=== PATIENT | female | born 1950 | race African-American/Black ===

== ENCOUNTER 2021-03-29 17:49 | Emergency (ER) | payer MEDICARE, MEDICAID, OTHER ==
[~2021-03-29] VITALS: Ht 162.6 cm; Wt 100.0 kg
[2021-03-29] MEDS ORDERED: TETANUS, DIPHTHERIA, PERTUSSIS VAC/PF 0.5ML (>7YR OLD) IM ONE (19:15)
[2021-03-29 21:18] VITALS: BP 175/84
== END 2021-03-29 21:25 | disposition home or self-care (01) ==
LOC: ER 17:49
DX: R68.84 Jaw pain (principal); E11.9 Type 2 diabetes mellitus without complications; I10 Essential (primary) hypertension; W01.0XXA Fall on same level from slipping, tripping and stumbling without subsequent striking against object, initial encounter; Y93.89 Activity, other specified; Y92.018 Other place in single-family (private) house as the place of occurrence of the external cause
CPT/HCPCS: 70486; 90471; 90715; 99285

== ENCOUNTER 2022-08-16 17:59 | Emergency (ER) | payer MEDICARE, MEDICAID ==
[~2022-08-16] VITALS: Ht 167.6 cm; Wt 73.0 kg
[2022-08-16 18:08] VITALS: BP 138/71
[2022-08-16 20:53] LABS: BASOPHILS % 1.2 % (0.0-2.0); EOSINOPHILS % 2.9 % (0.0-5.0); HEMATOCRIT. 34.7 % (36.0-48.0); HEMOGLOBIN. 11.6 g/dL (12.0-16.0); LYMPHOCYTES % 28.9 % (20.0-50.0); MEAN CORPUSCULAR HEMOGLOBIN 28.2 pg (28.0-32.0); MEAN CORPUSCULAR VOLUME 84.7 fL (81.0-99.0); MONOCYTES % 7.2 % (2.0-8.0); NEUTROPHILS % 59.8 % (40.0-76.0); PLATELET 252 x1000/uL (130-400); RED CELL DISTRIBUTION WIDTH 15.3 % (11.6-14.6)
[2022-08-16 20:56] LABS: CHLORIDE 99 mEq/L (98-107)
[2022-08-16] MEDS ORDERED: GABA300C MT (22:54)
== END 2022-08-16 23:20 | disposition home or self-care (01) ==
LOC: ER 17:59
DX: E11.40 Type 2 diabetes mellitus with diabetic neuropathy, unspecified (principal); I10 Essential (primary) hypertension
CPT/HCPCS: 36415; 71045; 80053; 83880; 84484; 85025; 93005; 93970; 99285

== ENCOUNTER 2024-06-01 08:10 | Inpatient (IN) | payer OTHER, MEDICAID, MEDICARE ==
[~2024-06-01] VITALS: Ht 167.6 cm; Wt 77.1 kg
[~2024-06-01 08:10] MED LIST: GABA300C MT
[2024-06-01 09:17] LABS: BASOPHILS % 0.9 % (0.0-2.0); EOSINOPHILS % 0.7 % (0.0-5.0); HEMATOCRIT. 40.7 % (36.0-48.0); HEMOGLOBIN. 13.6 g/dL (12.0-16.0); LYMPHOCYTES % 21.8 % (20.0-50.0); MEAN CORPUSCULAR HEMOGLOBIN 28.6 pg (28.0-32.0); MEAN CORPUSCULAR HGB CONC 33.4 g/dL (31.0-37.0); MEAN CORPUSCULAR VOLUME 85.5 fL (81.0-99.0); MEAN PLATELET VOLUME 9.7 fl (7.4-10.4); MONOCYTES % 4.4 % (2.0-8.0); NEUTROPHILS % 72.2 % (40.0-76.0); PLATELET 222 x1000/uL (130-400); RED BLOOD CELL COUNT 4.76 mill/uL (4.2-5.4); RED CELL DISTRIBUTION WIDTH 14.8 % (11.6-14.6); WHITE BLOOD COUNT 7.1 x1000/uL (4.5-11.0)
[2024-06-01 09:33] LABS: CHLORIDE 106 mEq/L (98-107); POTASSIUM 3.9 mEq/L (3.5-5.1); SODIUM 142 mEq/L (136-145)
[2024-06-01 09:34] LABS: CALCIUM 10.5 mg/dL (8.7-10.4); CARBON DIOXIDE 29 mEq/L (21-32)
[2024-06-01 09:39] LABS: CREATININE 0.7 mg/dL (0.6-1.0); GLUCOSE 110 mg/dL (70-105); UREA NITROGEN BLOOD 10 mg/dL (9-23)
[2024-06-01 09:45] LABS: TROPONIN I HIGH SENSITIVITY < 4 ng/L (3.0-34)
[2024-06-01] MEDS ORDERED: INSULIN GLARGINE 100 UNITS/ML SUBCUT SCH (10:00)
[2024-06-01] MEDS: MAGNESIUM 2 G PREMIX 50 ML IV NR (11:36)
[2024-06-01] MEDS ORDERED: DEXTROSE 50% WATER 50ML SYRINGE IV PRN (13:45)
[2024-06-01] MEDS ORDERED: ONDANSETRON HCL 4MG/2ML INJ IV PRN (13:45)
[2024-06-01] MEDS ORDERED: ACETAMINOPHEN 325MG TABLET PO PRN (13:45)
[2024-06-01] MEDS ORDERED: MAGNESIUM/ALUMINUM HYDROXIDE/SIMETHICONE 30ML UDC PO PRN (13:45)
[2024-06-01] MEDS ORDERED: IPRATROPIUM/ALBUTEROL 0.5-3(2.5)MG/3ML NEB HHN PRN (13:45)
[2024-06-01] MEDS ORDERED: DOCUSATE SODIUM 100MG CAPSULE PO PRN (13:45)
[2024-06-01] MEDS ORDERED: MORPHINE SULFATE 2 MG/ML INJ (NOT FOR IM USE) IV PRN (13:45)
[2024-06-01] MEDS ORDERED: GUAIFENESIN 200MG/10ML SUGAR FREE UDC PO PRN (13:45)
[2024-06-01] MEDS ORDERED: NALOXONE HCL 0.4MG/ML VIAL IV PRN (14:30)
[2024-06-01] MEDS: IOHEXOL-350 100 ML BOTTLE ONE (14:58)
[2024-06-01] MEDS: HYDRALAZINE 20MG/ML VIAL IV NR (15:05)
[2024-06-01 15:35] VITALS: BP 155/82; PULSE 72; RESP 20; TEMP 36.5848
[2024-06-01] MEDS ORDERED: ATOR10TA MT (15:46)
[2024-06-01] MEDS ORDERED: ASPI-986 MT (15:46)
[2024-06-01] MEDS ORDERED: METF-416 MT (15:46)
[2024-06-01] MEDS: INSULIN LISPRO 100 UNITS/ML SUBCUT SCH (16:23)
[2024-06-01] MEDS: SODIUM CHLORIDE 0.9% 1,000 ML IV SCH (16:23)
[2024-06-01] MEDS: BLOOD SUGAR DIAGNOSTIC STRIP TEST SCH (16:23)
[2024-06-01] MEDS: ENOXAPARIN 40MG/0.4ML SYR SUBCUT SCH (16:23)
[2024-06-01 18:34] LABS: TROPONIN I HIGH SENSITIVITY < 4 ng/L (3.0-34)
[2024-06-01 20:03] VITALS: BP 119/72; PULSE 75; RESP 18; TEMP 36.50292; O2SAT 99
[2024-06-01] MEDS: GABAPENTIN 100MG CAPSULE PO SCH (21:27)
[2024-06-01 22:18] LABS: CREATINE KINASE MB FRACTION 3.2 ng/mL (0.5-3.6); TROPONIN I HIGH SENSITIVITY 4 ng/L (3.0-34)
[2024-06-01 22:19] LABS: CREATINE KINASE 225 IU/L (34-145)
[2024-06-02] VITALS: BP 149/83; PULSE 59; RESP 18; TEMP 36.50292; O2SAT 99
[2024-06-02 04:00] VITALS: BP 94/58; PULSE 56; RESP 16; TEMP 36.61404; O2SAT 100
[2024-06-02] MEDS: ACETAMINOPHEN 325MG TABLET PO PRN (04:01)
[2024-06-02] MEDS: INSULIN LISPRO 100 UNITS/ML SUBCUT SCH (06:40)
[2024-06-02 07:17] LABS: BASOPHILS % 1.2 % (0.0-2.0); EOSINOPHILS % 2.3 % (0.0-5.0); HEMATOCRIT. 37.8 % (36.0-48.0); HEMOGLOBIN. 12.6 g/dL (12.0-16.0); LYMPHOCYTES % 35.5 % (20.0-50.0); MEAN CORPUSCULAR HEMOGLOBIN 28.6 pg (28.0-32.0); MEAN CORPUSCULAR HGB CONC 33.2 g/dL (31.0-37.0); MEAN PLATELET VOLUME 9.8 fl (7.4-10.4); MONOCYTES % 5.8 % (2.0-8.0); NEUTROPHILS % 55.2 % (40.0-76.0); PLATELET 206 x1000/uL (130-400); RED BLOOD CELL COUNT 4.39 mill/uL (4.2-5.4); RED CELL DISTRIBUTION WIDTH 14.6 % (11.6-14.6)
[2024-06-02 07:29] LABS: CHLORIDE 107 mEq/L (98-107); POTASSIUM 3.7 mEq/L (3.5-5.1); SODIUM 141 mEq/L (136-145)
[2024-06-02 07:30] LABS: CALCIUM 9.2 mg/dL (8.7-10.4); CARBON DIOXIDE 32 mEq/L (21-32)
[2024-06-02 07:35] LABS: CREATINE KINASE MB FRACTION 3.4 ng/mL (0.5-3.6); CREATININE 0.7 mg/dL (0.6-1.0); GLUCOSE 92 mg/dL (70-105); TRIGLYCERIDE 56 mg/dL (0-150); UREA NITROGEN BLOOD 9 mg/dL (9-23)
[2024-06-02 07:36] LABS: LDL CHOLESTEROL 62 mg/dL (5-100); TROPONIN I HIGH SENSITIVITY 4 ng/L (3.0-34)
[2024-06-02 07:37] LABS: CHOLESTEROL 128 mg/dL (<200); CREATINE KINASE 235 IU/L (34-145); HDL CHOLESTEROL 51 mg/dL (>65)
[2024-06-02 07:39] LABS: T4 FREE 1.01 ng/dL (0.89-1.76)
[2024-06-02 07:40] LABS: THYROID STIMULATING HORMONE 2.12 uIU/mL (0.55-4.78)
[2024-06-02 08:00] VITALS: BP 120/76; PULSE 60; RESP 18; TEMP 36.16956; O2SAT 92
[2024-06-02] MEDS: LISINOPRIL 10MG TABLET PO SCH (09:21)
[2024-06-02] MEDS: ASPIRIN 81MG EC TABLET PO SCH (09:21)
[2024-06-02] MEDS: PANTOPRAZOLE SODIUM 40 MG/VIAL IV SCH (09:21)
[2024-06-02] MEDS: CLONIDINE 0.1MG TABLET PO PRN (11:52)
[2024-06-02 12:00] VITALS: BP 161/79; PULSE 57; RESP 18; TEMP 36.16956; O2SAT 98
[2024-06-02 16:00] VITALS: BP 117/66; PULSE 55; RESP 18; TEMP 36.72516; O2SAT 99
[2024-06-02] MEDS ORDERED: VITA100012 PO (16:33)
[2024-06-02] MEDS ORDERED: DONE5TAB33 PO (17:01)
[2024-06-02] MEDS ORDERED: HYDR25TA PO (17:08)
[2024-06-02] MEDS ORDERED: ATOR40TA70 PO (17:08)
[2024-06-02] MEDS ORDERED: METF-873 MT (17:13)
[2024-06-02] MEDS ORDERED: MEMA1CAP2 MT (17:14)
[2024-06-02] MEDS ORDERED: QUET150T20 (17:16)
[2024-06-02] MEDS ORDERED: LIP40 MT (17:16)
[2024-06-02] MEDS ORDERED: CLOP-31 PO (17:17)
[2024-06-02] MEDS ORDERED: LISI10TA26 PO (17:33)
[2024-06-02 17:56] VITALS: BP 117/66; PULSE 55; TEMP 98.1; O2SAT 99
== END 2024-06-02 18:43 | disposition home or self-care (01) | DRG 392 ==
LOC: ER 08:10 → 8WST 12:17 → EDBEDREQ 12:19 → EDBEDREQTM 12:19
PROVIDERS: ADMIT Internal Medicine; ATTEND Internal Medicine
DX: K29.70 Gastritis, unspecified, without bleeding (principal); E11.40 Type 2 diabetes mellitus with diabetic neuropathy, unspecified; I10 Essential (primary) hypertension; K59.00 Constipation, unspecified; Z96.659 Presence of unspecified artificial knee joint; Z79.899 Other long term (current) drug therapy; Z79.82 Long term (current) use of aspirin; Z79.4 Long term (current) use of insulin
CPT/HCPCS: 36415; 71045; 71275; 80048; 80061; 82550; 82553; 82962; 83036; 83735; 83880; 84439; 84443; 84484; 85025; 85379; 93005; 93970; 99285; J0360; J1650; J2470; J3475; Q9967